=== PATIENT | male | born 1945 | race Caucasian/White ===

== ENCOUNTER 2018-08-12 14:57 | Outpatient (REF) | payer MEDICARE, SELFPAY ==
[2018-08-12 21:34] LABS: Abs Immature Grans 0.01 k/cumm (0.0-0.09); Absolute Basophil Count 0.03 k/cumm (0.0-0.2); Absolute Eosinophil Count 0.18 k/cumm (0.0-0.7); Absolute Lymphocyte Count 1.27 k/cumm (1.2-3.4); Absolute Monocyte Count 0.54 k/cumm (0.11-0.7); Absolute Neutrophil Count 5.19 k/cumm (1.2-6.7); Basophils % 0.4; Eosinophils % 2.5; HCT 43.2 % (40.0-50.0); HGB 14.7 g/dL (13.5-17.5); Immature Grans % 0.1; Lymphocytes % 17.6; Mean Corpuscular Hemoglobin 30.5 pg (27.0-33.0); Mean Corpuscular Volume 89.6 fL (80-95); Mean Platelet Volume 9.8 fL (8.0-11.0); Monocytes % 7.5; Neutrophils % 71.9; Platelet Count 290 x1000/uL (130-400); RBC 4.82 m/cumm (4.50-6.00); RBC Distribution Width 12.9 % (11.8-14.1); White Blood Cell Count 7.22 k/cumm (4.4-10.8)
[2018-08-12 21:48] LABS: ALT 32 U/L (12-78); AST 20 U/L (15-37); Albumin 4.3 g/dL (3.4-5.0); Alkaline Phosphatase 74 U/L (46-116); Anion Gap 12.3 mmol/L (3-11); BUN 12 mg/dL (7-18); Bilirubin, Total 0.8 mg/dL (0.2-1.0); CO2 26.7 mmol/L (21.0-32.0); CREATININE 0.86 mg/dL (0.70-1.30); Calcium 9.5 mg/dL (8.5-10.1); Chloride 102 mmol/L (98-107); Glucose 102 mg/dL (70-100); Potassium 4.2 mmol/L (3.5-5.1); Sodium 141 mmol/L (136-145); TSH (W/Ref FT4) 0.79 uIU/mL (0.358-3.74); Total Protein 7.4 g/dL (6.4-8.2)
== END 2018-08-12 15:17 ==
LOC: NCHCN 14:57
PROVIDERS: PCP Internal Medicine; Visit Provider Nurse Practitioner Family
DX: R53.83 Other fatigue (principal); R19.7 Diarrhea, unspecified; J32.9 Chronic sinusitis, unspecified
CPT/HCPCS: 80053; 84443; 85025

== ENCOUNTER 2019-10-29 15:20 | Outpatient (REF) | payer MEDICARE, SELFPAY ==
[2019-10-29 21:12] LABS: Anion Gap 6.2 mmol/L (3-11); BUN 12 mg/dL (7-18); CO2 29.8 mmol/L (21.0-32.0); CREATININE 0.86 mg/dL (0.70-1.30); Calcium 9.2 mg/dL (8.5-10.1); Calculated LDL 132 mg/dL (<100); Chloride 101 mmol/L (98-107); Cholesterol 221 mg/dL (<200); Glucose 134 mg/dL (74-106); HDL Cholesterol 32 mg/dL (40-60); Potassium 3.4 mmol/L (3.5-5.1); Sodium 137 mmol/L (136-145); Triglyceride 287 mg/dL (<150); Vitamin B12 507 pg/mL (193-986)
== END 2019-10-29 15:40 ==
LOC: NCHCN 15:20
PROVIDERS: PCP Internal Medicine; Visit Provider Internal Medicine
DX: I10 Essential (primary) hypertension (principal); E78.5 Hyperlipidemia, unspecified; R41.3 Other amnesia; R19.7 Diarrhea, unspecified; K21.9 Gastro-esophageal reflux disease without esophagitis; J30.9 Allergic rhinitis, unspecified
CPT/HCPCS: 80048; 80061; 82607

== ENCOUNTER 2020-02-15 17:59 | Outpatient (REF) | payer MEDICARE, SELFPAY ==
[2020-02-15 20:45] LABS: Abs Immature Grans 0.02 10^3/uL (0.0-0.06); Absolute Basophil Count 0.06 10^3/uL (0.0-0.2); Absolute Eosinophil Count 0.31 10^3/uL (0.0-0.7); Absolute Lymphocyte Count 1.43 10^3/uL (1.2-3.4); Absolute Monocyte Count 0.49 10^3/uL (0.1-0.8); Absolute Neutrophil Count 4.45 10^3/uL (1.2-6.7); Basophils % 0.9; Eosinophils % 4.6; HCT 44.2 % (40.0-50.0); HGB 14.4 g/dL (13.5-17.5); Immature Grans % 0.3; Lymphocytes % 21.2; MCH 28.6 pg (27.0-33.0); MCHC 32.6 % (32.0-36.0); MCV 87.9 fL (80-95); MPV 9.8 fL (8.0-11.0); Monocytes % 7.2; Neutrophils % 65.8; Nucleated RBC 0 %; Platelet Count 289 10^3/uL (130-400); RBC 5.03 10^6/uL (4.36-5.78); RDW 11.9 % (11.8-14.1); RDW-SD 38.2 fL; WBC 6.76 10^3/uL (4.4-10.8)
[2020-02-15 20:58] LABS: Calculated LDL 76 mg/dL (<100); Cholesterol 159 mg/dL (<200); HDL Cholesterol 32 mg/dL (40-60); Triglyceride 258 mg/dL (<150)
[2020-02-17 21:18] LABS: COVID-19 RT-PCR Result NEGATIVE (Negative)
== END 2020-02-15 18:19 ==
LOC: NCHCN 17:59
PROVIDERS: PCP Internal Medicine; Visit Provider Nurse Practitioner Family
DX: J06.9 Acute upper respiratory infection, unspecified (principal); E78.5 Hyperlipidemia, unspecified; D64.9 Anemia, unspecified
CPT/HCPCS: 80061; U0003; 85025

== ENCOUNTER 2020-04-11 21:28 | Outpatient (REF) | payer MEDICARE, SELFPAY ==
[2020-04-11 14:18] LABS: Anion Gap 8.7 mmol/L (3-11); BUN 15 mg/dL (7-18); CO2 30.3 mmol/L (21.0-32.0); CREATININE 0.8 mg/dL (0.70-1.30); Calcium 9.5 mg/dL (8.5-10.1); Chloride 102 mmol/L (98-107); Glucose 118 mg/dL (74-106); Sodium 141 mmol/L (136-145)
== END 2020-04-11 21:29 | disposition home or self-care (01) ==
LOC: NCHCN 21:28
PROVIDERS: PCP Internal Medicine; Visit Provider Internal Medicine
DX: I10 Essential (primary) hypertension (principal)
CPT/HCPCS: 80048

== ENCOUNTER 2020-11-03 15:04 | Outpatient (REF) | payer MEDICARE, SELFPAY ==
[2020-11-03 14:08] LABS: HCT 41.5 % (40.0-50.0); HGB 13.7 g/dL (13.5-17.5); MPV 9.2 fL (8.0-11.0); Platelet Count 327 10^3/uL (130-400); RBC 4.56 10^6/uL (4.36-5.78); RDW 11.6 % (11.8-14.1); RDW-SD 39.2 fL; WBC 6.34 10^3/uL (4.4-10.8)
[2020-11-03 14:34] LABS: Anion Gap 10.3 mmol/L (3-11); BUN 10 mg/dL (7-18); CO2 27.7 mmol/L (21.0-32.0); CREATININE 0.9 mg/dL (0.70-1.30); Calcium 9.3 mg/dL (8.5-10.1); Chloride 102 mmol/L (98-107); Glucose 99 mg/dL (74-106); Potassium 4.2 mmol/L (3.5-5.1); Sodium 140 mmol/L (136-145); TSH (W/Ref FT4) 0.71 uIU/mL (0.36-3.74)
== END 2020-11-03 15:05 | disposition home or self-care (01) ==
LOC: NCHCN 15:04
PROVIDERS: PCP Internal Medicine; Visit Provider Internal Medicine
DX: I10 Essential (primary) hypertension (principal); F32.9 Major depressive disorder, single episode, unspecified; F41.1 Generalized anxiety disorder
CPT/HCPCS: 80048; 85027; 84443

== ENCOUNTER 2022-04-17 12:39 | Outpatient (REF) | payer MEDICARE, SELFPAY ==
[2022-04-17 15:40] LABS: Anion Gap 6.2 mmol/L (3-11); BUN 14 mg/dL (7-18); CO2 31.8 mmol/L (21.0-32.0); CREATININE 0.9 mg/dL (0.70-1.30); Calcium 9.8 mg/dL (8.5-10.1); Chloride 106 mmol/L (98-107); Estimated GFR 87.96 (mL/min/1.73m2); Ferritin 95 ng/mL (26-388); Folate 7.5 ng/mL (8.6-20.0); Glucose 124 mg/dL (74-106); Potassium 4.1 mmol/L (3.5-5.1); Sodium 144 mmol/L (136-145); TSH (W/Ref FT4) 0.99 uIU/mL (0.36-3.74); Vitamin B12 429 pg/mL (193-986)
== END 2022-04-17 12:40 | disposition home or self-care (01) ==
LOC: NCHCN 12:39
PROVIDERS: PCP Internal Medicine; Visit Provider Nurse Practitioner Family
DX: F03.90 Unspecified dementia, unspecified severity, without behavioral disturbance, psychotic disturbance, mood disturbance, and anxiety (principal); D64.9 Anemia, unspecified; F41.8 Other specified anxiety disorders
CPT/HCPCS: 80048; 82607; 82728; 82746; 84443

== ENCOUNTER 2023-07-31 14:44 | Outpatient (REF) | payer MEDICARE, SELFPAY ==
[2023-07-31 21:55] LABS: HCT 43.5 % (40.0-50.0); MCH 28.5 pg (27.0-33.0); MCHC 32.2 % (32.0-36.0); MCV 89 fL (80-95); MPV 9.3 fL (8.0-11.0); Platelet Count 302 10^3/uL (130-400); RBC 4.91 10^6/uL (4.36-5.78); RDW 12.5 % (11.8-14.1); RDW-SD 40.9 fL; WBC 6.17 10^3/uL (4.4-10.8)
[2023-07-31 22:22] LABS: ALT 27 U/L (16-63); AST 14 U/L (15-37); Albumin 4.2 g/dL (3.4-5.0); Alkaline Phosphatase 85 U/L (46-116); Anion Gap 7.7 mmol/L (3-11); BUN 14 mg/dL (7-18); Bilirubin, Total 0.7 mg/dL (0.2-1.0); CO2 30.3 mmol/L (21.0-32.0); CREATININE 0.8 mg/dL (0.70-1.30); Calcium 9.3 mg/dL (8.5-10.1); Chloride 105 mmol/L (98-107); Estimated GFR 90.02 (mL/min/1.73m2); FREE T4 0.91 ng/dL (0.76-1.46); Glucose 99 mg/dL (74-106); Potassium 4.4 mmol/L (3.5-5.1); Sodium 143 mmol/L (136-145); TSH 0.92 uIU/Ml (0.36-3.74)
[2023-07-31 23:10] LABS: Folate > 20.0 ng/mL (8.6-20.0); Vitamin B12 332 pg/mL (193-986)
== END 2023-07-31 14:45 | disposition home or self-care (01) ==
LOC: NCHCN 14:44
PROVIDERS: PCP Internal Medicine; Visit Provider Nurse Practitioner Family
DX: I10 Essential (primary) hypertension (principal); F01.B11 Vascular dementia, moderate, with agitation
CPT/HCPCS: 80053; 85027; 82607; 82746; 84439; 84443